=== PATIENT | male | born 1960 | race African-American/Black ===

== ENCOUNTER 2023-07-22 16:11 | Emergency (ER) | payer OTHER, MEDICAID ==
[2023-07-22 17:35] LABS: ALT (SGPT) 103 U/L (8-55); AST (SGOT) 150 U/L (5-34); Albumin 2.9 g/dL (3.4-4.8); Alkaline Phosphatase 188 U/L (40-110); Anion Gap 25 mmol/L (10-20); Anisocytosis SLIGHT = 6-15 cells (100X) (0-5/hpf); BUN (Urea Nitrogen) 63 mg/dL (8.4-25.7); Bilirubin, Total 2.3 mg/dL (0.2-1.2); Calc. Creatinine Clearance 0 mL/min (70-130); Calcium 9.2 mg/dL (7.8-10.44); Carbon Dioxide 28 mmol/L (23-31); Chloride 85 mmol/L (98-107); Estimated GFR 19; Globulin 3.9 g/dL (2.4-3.5); Glucose 189 mg/dL (80-115); Hematocrit 32.6 % (42.0-52.0); Hemoglobin 9.9 g/dL (14.0-18.0); Hypochromia SLIGHT = 6-15 cells (100X) (0-5/hpf); Large Platelets SLIGHT (None Seen); MDiff Complete? YES; Magnesium 2.7 mg/dL (1.6-2.6); Mean Corpuscular HGB CONC 30.5 g/dL (32.0-36.0); Mean Corpuscular Hemoglobin 23.6 pg (27.0-31.0); Mean Corpuscular Volume 77.4 fl (78.0-98.0); Mean Platelet Volume 10.9 fL (7.4-10.4); Nucleated RBC (Manual Ct) 1 % (0); Platelet Adequacy Comment Appears Adequate; Platelet Count 163 10x3/uL (130-400); Poikilocytosis SLIGHT = 6-15 cells (100X) (0-5/hpf); Polychromasia MODERATE = 3-4 cells (100X) (0-2/hpf); Potassium 4.3 mmol/L (3.5-5.1); Protein, Total 6.8 g/dL (5.8-8.1); Red Blood Cell (RBC) Count 4.21 mill/uL (4.70-6.10); Sodium 134 mmol/L (136-145); Target Cells SLIGHT = 2-5 cells (100X) (0-1/hpf); White Blood Cell (WBC) Count 4.6 10x3/uL (4.8-10.8)
[2023-07-22 17:52] LABS: SARS-CoV-2 NAA Rapid Test Not Detected (NotDetected)
[2023-07-22] MEDS ORDERED: Furosemide 20 MG/2 ML VIAL ONE ×2 (17:59→19:07)
[2023-07-22 18:04] LABS: Troponin I 1.345 ng/mL (< 0.028)
[2023-07-22] MEDS ORDERED: Aspirin Chewable 81 MG TAB ONE (18:08)
[2023-07-22] MEDS ORDERED: Vancomycin 1 GM VIAL ONE (18:08)
[2023-07-22] MEDS ORDERED: Sodium Chloride 0.9% 250 ML 250 ML ONE (18:08)
[2023-07-22] MEDS ORDERED: Cefepime 2 GM VIAL ONE (18:08)
[2023-07-22] MEDS ORDERED: Sodium Chloride 0.9% 100 ML ONE (18:08)
[2023-07-22 20:46] LABS: Troponin I 1.384 ng/mL (< 0.028)
[2023-07-26 13:28] LABS: Lactic Acid 4.7 mmol/L (0.5-2.2)
== END 2023-07-22 20:06 | disposition short-term general hospital (02) ==
LOC: MADERS 16:11
DX: I13.0 Hypertensive heart and chronic kidney disease with heart failure and stage 1 through stage 4 chronic kidney disease, or unspecified chronic kidney disease (principal); N18.9 Chronic kidney disease, unspecified; N17.9 Acute kidney failure, unspecified; E87.20 Acidosis, unspecified; I21.4 Non-ST elevation (NSTEMI) myocardial infarction; R74.01 Elevation of levels of liver transaminase levels; K21.9 Gastro-esophageal reflux disease without esophagitis; Z79.01 Long term (current) use of anticoagulants; Z79.899 Other long term (current) drug therapy; Z79.82 Long term (current) use of aspirin; Z20.822 Contact with and (suspected) exposure to COVID-19
CPT/HCPCS: 71045; 80053; 83605; 83735; 83880; 84484 ×2; 85025; 87040; 93005; U0002; 36415; 96365; 96367; 96375; 96376; J0692; J1940; J3370; J3490; J7050

== ENCOUNTER 2024-03-20 08:04 | Outpatient (CLI) | payer OTHER, MEDICAID | END 2024-03-20 08:05 | disposition home or self-care (01) | LOC: MADPT 08:04 → EDSTATUS 08:47 | DX: Z74.09 Other reduced mobility (principal); T82.9XXD Unspecified complication of cardiac and vascular prosthetic device, implant and graft, subsequent encounter ==